=== PATIENT | female | born 1935 | race Caucasian/White ===

== ENCOUNTER 2020-04-08 00:54 | Outpatient (REF) | payer MEDICARE, SELFPAY ==
[2020-04-08 11:05] LABS: INTERNATIONAL NORM RATIO 1.1 (0.9-1.1); Prothrombin Time 12.9 SEC (10.8-13.0)
== END 2020-04-08 00:55 | disposition home or self-care (01) ==
LOC: HO.LHD 00:54
PROVIDERS: Visit Provider Internal Medicine
DX: I48.91 Unspecified atrial fibrillation (principal)
CPT/HCPCS: 36415; 85610

== ENCOUNTER 2020-04-11 06:48 | Outpatient (REF) | payer MEDICARE, SELFPAY ==
[2020-04-11 10:50] LABS: INTERNATIONAL NORM RATIO 1.1 (0.9-1.1); Prothrombin Time 13.6 SEC (10.8-13.0)
== END 2020-04-11 06:49 | disposition home or self-care (01) ==
LOC: HO.LHD 06:48
PROVIDERS: Visit Provider Internal Medicine
DX: I48.91 Unspecified atrial fibrillation (principal)
CPT/HCPCS: 36415; 85610

== ENCOUNTER 2020-04-13 06:37 | Outpatient (REF) | payer MEDICARE, SELFPAY ==
[2020-04-13 11:09] LABS: INTERNATIONAL NORM RATIO 1.4 (0.9-1.1); Prothrombin Time 16.1 SEC (10.8-13.0)
== END 2020-04-13 06:38 | disposition home or self-care (01) ==
LOC: HO.LHD 06:37
PROVIDERS: Visit Provider Internal Medicine
DX: I48.91 Unspecified atrial fibrillation (principal)
CPT/HCPCS: 36415; 85610

== ENCOUNTER 2020-04-14 06:49 | Outpatient (REF) | payer MEDICARE, SELFPAY | END 2020-04-14 06:50 | disposition home or self-care (01) | LOC: HO.LHD 06:49 | PROVIDERS: Visit Provider Internal Medicine | DX: Z13.89 Encounter for screening for other disorder (principal) ==

== ENCOUNTER 2020-04-15 07:43 | Outpatient (REF) | payer MEDICARE, SELFPAY ==
[2020-04-15 10:58] LABS: INTERNATIONAL NORM RATIO 4.2 (0.9-1.1); Prothrombin Time 50.7 SEC (10.8-13.0)
== END 2020-04-15 07:44 | disposition home or self-care (01) ==
LOC: HO.LHD 07:43
PROVIDERS: Visit Provider Internal Medicine
DX: I48.91 Unspecified atrial fibrillation (principal)
CPT/HCPCS: 36415; 85610

== ENCOUNTER 2020-04-18 | Outpatient (REF) | payer MEDICARE, SELFPAY ==
[2020-04-18 11:01] LABS: INTERNATIONAL NORM RATIO 1.9 (0.9-1.1); Prothrombin Time 22.2 SEC (10.8-13.0)
== END 2020-04-18 00:01 | disposition home or self-care (01) ==
LOC: HO.LHD
PROVIDERS: Visit Provider Internal Medicine
DX: I48.91 Unspecified atrial fibrillation (principal); Z79.01 Long term (current) use of anticoagulants
CPT/HCPCS: 36415; 85610

== ENCOUNTER 2020-04-19 07:19 | Outpatient (REF) | payer MEDICARE, SELFPAY ==
[2020-04-19 11:16] LABS: Prothrombin Time 23.6 SEC (10.8-13.0)
== END 2020-04-19 07:20 | disposition home or self-care (01) ==
LOC: HO.LHD 07:19
PROVIDERS: Visit Provider Internal Medicine
DX: I48.0 Paroxysmal atrial fibrillation (principal)
CPT/HCPCS: 36415; 85610

== ENCOUNTER 2020-04-25 07:54 | Outpatient (REF) | payer MEDICARE, SELFPAY ==
[2020-04-25 10:41] LABS: Prothrombin Time 88.5 SEC (10.8-13.0)
[2020-04-25 10:52] LABS: INTERNATIONAL NORM RATIO 7.3 (0.9-1.1)
== END 2020-04-25 07:55 | disposition home or self-care (01) ==
LOC: HO.LHD 07:54
PROVIDERS: Visit Provider Internal Medicine
DX: I48.91 Unspecified atrial fibrillation (principal)
CPT/HCPCS: 36415; 85610

== ENCOUNTER 2020-04-27 | Outpatient (REF) | payer MEDICARE, SELFPAY ==
[2020-04-27 10:59] LABS: INTERNATIONAL NORM RATIO 4.5 (0.9-1.1); Prothrombin Time 54.1 SEC (10.8-13.0)
== END 2020-04-27 00:01 | disposition home or self-care (01) ==
LOC: HO.LHD
PROVIDERS: Visit Provider Internal Medicine
DX: I48.91 Unspecified atrial fibrillation (principal)
CPT/HCPCS: 36415; 85610

== ENCOUNTER 2020-04-29 | Outpatient (REF) | payer MEDICARE, SELFPAY ==
[2020-04-29 11:15] LABS: INTERNATIONAL NORM RATIO 2.4 (0.9-1.1); Prothrombin Time 28.2 SEC (10.8-13.0)
== END 2020-04-29 00:01 | disposition home or self-care (01) ==
LOC: HO.LHD
PROVIDERS: Visit Provider Internal Medicine
DX: I48.91 Unspecified atrial fibrillation (principal); Z79.01 Long term (current) use of anticoagulants
CPT/HCPCS: 36415; 85610

== ENCOUNTER 2020-05-02 | Outpatient (REF) | payer MEDICARE, SELFPAY ==
[2020-05-02 10:56] LABS: Prothrombin Time 35.6 SEC (10.8-13.0)
== END 2020-05-02 00:01 | disposition home or self-care (01) ==
LOC: HO.LHD
PROVIDERS: Visit Provider Internal Medicine
DX: I48.91 Unspecified atrial fibrillation (principal); Z79.01 Long term (current) use of anticoagulants
CPT/HCPCS: 36415; 85610

== ENCOUNTER 2020-05-09 | Outpatient (REF) | payer MEDICARE, SELFPAY ==
[2020-05-09 11:50] LABS: Prothrombin Time 70.2 SEC (10.8-13.0)
[2020-05-09 11:52] LABS: INTERNATIONAL NORM RATIO 5.8 (0.9-1.1)
== END 2020-05-09 00:01 | disposition home or self-care (01) ==
LOC: HO.LHD
PROVIDERS: Visit Provider Internal Medicine
DX: I48.91 Unspecified atrial fibrillation (principal); Z79.01 Long term (current) use of anticoagulants
CPT/HCPCS: 36415; 85610

== ENCOUNTER 2020-05-11 05:08 | Outpatient (REF) | payer MEDICARE, SELFPAY ==
[2020-05-11 11:01] LABS: INTERNATIONAL NORM RATIO 3.1 (0.9-1.1); Prothrombin Time 37.1 SEC (10.8-13.0)
== END 2020-05-11 05:09 | disposition home or self-care (01) ==
LOC: HO.LHD 05:08
PROVIDERS: Visit Provider Internal Medicine
DX: I48.91 Unspecified atrial fibrillation (principal)
CPT/HCPCS: 36415; 85610

== ENCOUNTER 2020-05-13 | Outpatient (REF) | payer MEDICARE, SELFPAY ==
[2020-05-13 11:45] LABS: Prothrombin Time 23.4 SEC (10.8-13.0)
== END 2020-05-13 00:01 | disposition home or self-care (01) ==
LOC: HO.LHD
PROVIDERS: Visit Provider Internal Medicine
DX: I48.91 Unspecified atrial fibrillation (principal); Z79.01 Long term (current) use of anticoagulants
CPT/HCPCS: 36415; 85610

== ENCOUNTER 2020-05-17 05:05 | Outpatient (REF) | payer MEDICARE, SELFPAY ==
[2020-05-17 11:11] LABS: INTERNATIONAL NORM RATIO 2.6 (0.9-1.1); Prothrombin Time 31.6 SEC (10.8-13.0)
== END 2020-05-17 05:06 | disposition home or self-care (01) ==
LOC: HO.LHD 05:05
PROVIDERS: Visit Provider Internal Medicine
DX: I48.91 Unspecified atrial fibrillation (principal)
CPT/HCPCS: 36415; 85610

== ENCOUNTER 2020-05-19 | Outpatient (REF) | payer MEDICARE, SELFPAY ==
[2020-05-19 11:14] LABS: INTERNATIONAL NORM RATIO 3.1 (0.9-1.1); Prothrombin Time 37.6 SEC (10.8-13.0)
== END 2020-05-19 00:01 | disposition home or self-care (01) ==
LOC: HO.LHD
PROVIDERS: Visit Provider Internal Medicine
DX: I48.91 Unspecified atrial fibrillation (principal); Z79.01 Long term (current) use of anticoagulants
CPT/HCPCS: 36415; 85610

== ENCOUNTER 2020-05-24 09:06 | Outpatient (REF) | payer MEDICARE, SELFPAY ==
[2020-05-24 11:07] LABS: INTERNATIONAL NORM RATIO 2.6 (0.9-1.1); Prothrombin Time 31.1 SEC (10.8-13.0)
== END 2020-05-24 09:07 | disposition home or self-care (01) ==
LOC: HO.LHD 09:06
PROVIDERS: Visit Provider Internal Medicine
DX: I48.91 Unspecified atrial fibrillation (principal)
CPT/HCPCS: 36415; 85610

== ENCOUNTER 2020-05-31 04:05 | Outpatient (REF) | payer MEDICARE, SELFPAY ==
[2020-05-31 11:02] LABS: INTERNATIONAL NORM RATIO 4.3 (0.9-1.1); Prothrombin Time 51.5 SEC (10.8-13.0)
== END 2020-05-31 04:06 | disposition home or self-care (01) ==
LOC: HO.LHD 04:05
PROVIDERS: Visit Provider Internal Medicine
DX: I48.91 Unspecified atrial fibrillation (principal)
CPT/HCPCS: 36415; 85610

== ENCOUNTER 2020-06-01 12:08 | Outpatient (REF) | payer MEDICARE, SELFPAY ==
[2020-06-01 13:34] LABS: INTERNATIONAL NORM RATIO 2.8 (0.9-1.1); Prothrombin Time 33.6 SEC (10.8-13.0)
== END 2020-06-01 12:09 | disposition home or self-care (01) ==
LOC: HO.LHD 12:08
PROVIDERS: Visit Provider Internal Medicine
DX: I48.91 Unspecified atrial fibrillation (principal)
CPT/HCPCS: 36415; 85610

== ENCOUNTER 2020-06-08 07:47 | Outpatient (REF) | payer MEDICARE, SELFPAY ==
[2020-06-08 11:39] LABS: INTERNATIONAL NORM RATIO 3.2 (0.9-1.1); Prothrombin Time 38.9 SEC (10.8-13.0)
== END 2020-06-08 07:48 | disposition home or self-care (01) ==
LOC: HO.LHD 07:47
PROVIDERS: Visit Provider Internal Medicine
DX: I48.91 Unspecified atrial fibrillation (principal); Z79.01 Long term (current) use of anticoagulants
CPT/HCPCS: 36415; 85610

== ENCOUNTER 2020-06-15 | Outpatient (REF) | payer MEDICARE, SELFPAY ==
[2020-06-15 10:59] LABS: INTERNATIONAL NORM RATIO 1.8 (0.9-1.1); Prothrombin Time 21.3 SEC (10.8-13.0)
== END 2020-06-15 00:01 ==
LOC: HO.LHD
PROVIDERS: Visit Provider Internal Medicine
DX: I48.91 Unspecified atrial fibrillation (principal); Z79.01 Long term (current) use of anticoagulants
CPT/HCPCS: 36415; 85610

== ENCOUNTER 2020-06-20 | Outpatient (REF) | payer MEDICARE, SELFPAY ==
[2020-06-20 11:21] LABS: INTERNATIONAL NORM RATIO 1.3 (0.9-1.1)
== END 2020-06-20 00:01 ==
LOC: HO.LHD
PROVIDERS: Visit Provider Internal Medicine
DX: I48.91 Unspecified atrial fibrillation (principal); Z79.01 Long term (current) use of anticoagulants; Z51.81 Encounter for therapeutic drug level monitoring
CPT/HCPCS: 36415; 85610

== ENCOUNTER 2020-06-23 | Outpatient (REF) | payer MEDICARE, SELFPAY ==
[2020-06-23 11:32] LABS: INTERNATIONAL NORM RATIO 1.3 (0.9-1.1); Prothrombin Time 15.4 SEC (10.8-13.0)
== END 2020-06-23 00:01 | disposition home or self-care (01) ==
LOC: HO.LHD
PROVIDERS: Visit Provider Internal Medicine
DX: I48.91 Unspecified atrial fibrillation (principal); Z79.01 Long term (current) use of anticoagulants
CPT/HCPCS: 36415; 85610

== ENCOUNTER 2020-06-24 08:13 | Outpatient (REF) | payer MEDICARE, SELFPAY ==
[2020-06-24 10:47] LABS: INTERNATIONAL NORM RATIO 1.4 (0.9-1.1); Prothrombin Time 17.1 SEC (10.8-13.0)
== END 2020-06-24 08:14 | disposition home or self-care (01) ==
LOC: HO.LHD 08:13
PROVIDERS: Visit Provider Internal Medicine
DX: I48.91 Unspecified atrial fibrillation (principal)
CPT/HCPCS: 36415; 85610

== ENCOUNTER 2020-06-27 07:49 | Outpatient (REF) | payer MEDICARE, SELFPAY ==
[2020-06-27 11:04] LABS: INTERNATIONAL NORM RATIO 1.5 (0.9-1.1); Prothrombin Time 18.3 SEC (10.8-13.0)
== END 2020-06-27 07:50 | disposition home or self-care (01) ==
LOC: HO.LHD 07:49
PROVIDERS: Visit Provider Internal Medicine
DX: I48.91 Unspecified atrial fibrillation (principal)
CPT/HCPCS: 36415; 85610

== ENCOUNTER 2020-07-04 | Outpatient (REF) | payer MEDICARE, SELFPAY ==
[2020-07-04 11:20] LABS: INTERNATIONAL NORM RATIO 1.6 (0.9-1.1); Prothrombin Time 18.8 SEC (10.8-13.0)
== END 2020-07-04 00:01 | disposition home or self-care (01) ==
LOC: HO.LHD
PROVIDERS: Visit Provider Internal Medicine
DX: I48.91 Unspecified atrial fibrillation (principal)
CPT/HCPCS: 36415; 85610

== ENCOUNTER 2020-07-11 13:26 | Outpatient (REF) | payer MEDICARE, SELFPAY ==
[2020-07-11 11:03] LABS: INTERNATIONAL NORM RATIO 2.3 (0.9-1.1); Prothrombin Time 27.3 SEC (10.8-13.0)
== END 2020-07-11 13:27 | disposition home or self-care (01) ==
LOC: HO.LHD 13:26
PROVIDERS: Visit Provider Internal Medicine
DX: I48.91 Unspecified atrial fibrillation (principal)
CPT/HCPCS: 36415; 85610

== ENCOUNTER 2020-07-26 00:55 | Outpatient (REF) | payer MEDICARE, SELFPAY ==
[2020-07-26 10:57] LABS: INTERNATIONAL NORM RATIO 3.2 (0.9-1.1); Prothrombin Time 38.1 SEC (10.8-13.0)
== END 2020-07-26 00:56 | disposition home or self-care (01) ==
LOC: HO.LHD 00:55
PROVIDERS: Visit Provider Internal Medicine
DX: I48.91 Unspecified atrial fibrillation (principal)
CPT/HCPCS: 36415; 85610

== ENCOUNTER 2020-08-09 05:55 | Outpatient (REF) | payer MEDICARE, SELFPAY ==
[2020-08-09 11:21] LABS: INTERNATIONAL NORM RATIO 1.5 (0.9-1.1); Prothrombin Time 18.3 SEC (10.8-13.0)
== END 2020-08-09 05:56 | disposition home or self-care (01) ==
LOC: HO.LHD 05:55
PROVIDERS: Visit Provider Internal Medicine
DX: I48.91 Unspecified atrial fibrillation (principal)
CPT/HCPCS: 36415; 85610

== ENCOUNTER 2020-08-16 00:43 | Outpatient (REF) | payer MEDICARE, SELFPAY ==
[2020-08-16 11:16] LABS: INTERNATIONAL NORM RATIO 1.4 (0.9-1.1); Prothrombin Time 16.7 SEC (10.8-13.0)
== END 2020-08-16 00:44 | disposition home or self-care (01) ==
LOC: HO.LHD 00:43
PROVIDERS: Visit Provider Internal Medicine
DX: I48.91 Unspecified atrial fibrillation (principal)
CPT/HCPCS: 36415; 85610

== ENCOUNTER 2020-08-23 06:51 | Outpatient (REF) | payer MEDICARE, SELFPAY | END 2020-08-23 06:52 | disposition home or self-care (01) | LOC: HO.LHD 06:51 | PROVIDERS: Visit Provider Internal Medicine | DX: Z13.89 Encounter for screening for other disorder (principal) ==

== ENCOUNTER 2020-11-28 14:45 | Outpatient (REF) | payer MEDICARE, SELFPAY ==
[2020-11-28 14:53] LABS: Glucose Urine UA NEG (NEG); Leukocyte Esterase Urine 2+ (NEG); Nitrite Urine NEG (NEG); Specific Gravity - Urine 1.015 (1.005-1.025); Urine Blood 1+ (NEG); Urine Ketones NEG (NEG); Urine Protein NEG (NEG-TRACE)
[2020-11-28 14:57] LABS: Appearance Urine CLOUDY; Color Urine YELLOW
[2020-11-28 15:00] LABS: Bacteria Urine 2+ /LPF; Calcium Oxalate Crystals Urine 1+ /LPF; Squamous Epithelial Cell Urine TRACE /LPF; Urine Talc Crystals 1+ /LPF; WBC Urine 50-75 /HPF (0-4)
== END 2020-11-28 14:46 | disposition home or self-care (01) ==
LOC: HO.LNP 14:45
PROVIDERS: Visit Provider Internal Medicine
DX: R30.0 Dysuria (principal)
CPT/HCPCS: 81001; 87086; 87088; 87186

== ENCOUNTER 2020-12-13 13:07 | Outpatient (REF) | payer MEDICARE, SELFPAY ==
[2020-12-13 13:58] LABS: Glucose Urine UA NEG (NEG); Leukocyte Esterase Urine NEG (NEG); Nitrite Urine NEG (NEG); PH 5.5 (5.0-8.0); Urine Blood TRACE (NEG); Urine Ketones NEG (NEG); Urine Protein NEG (NEG-TRACE)
[2020-12-13 13:59] LABS: Appearance Urine CLEAR; Color Urine YELLOW
[2020-12-13 14:11] LABS: RBC Urine 0-2 /HPF (0); Squamous Epithelial Cell Urine TRACE /LPF; WBC Urine 0-2 /HPF (0-4)
== END 2020-12-13 13:08 | disposition home or self-care (01) ==
LOC: HO.HMGCLDS 13:07
PROVIDERS: Visit Provider Internal Medicine
DX: R30.0 Dysuria (principal)
CPT/HCPCS: 81001; 87086

== ENCOUNTER 2021-08-24 12:02 | Outpatient (REF) | payer MEDICARE, SELFPAY ==
[2021-08-24 11:16] LABS: MANUAL DIFF FLAG NO
[2021-08-24 11:23] LABS: Basophils Percent Auto 0.3 % (0-2); Eosinophils Absolute Auto 0.1 X10*3/uL (0.0-0.4); Eosinophils Percent Auto 1.5 % (0-4); Hematocrit 38.3 % (37.0-47.0); Hemoglobin 11.2 g/dl (12.0-16.0); Imm Gran Abs Auto 0.05 X10*3/uL (0.00-0.03); Imm Gran Pct Auto 0.6 % (0.0-0.4); Lymphocytes Absolute Auto 1.9 X10*3/uL (1.2-4.9); Lymphocytes Percent Auto 21.6 % (20-40); Mean Corpuscular HGB Conc 29.2 g/dl (31.0-35.0); Mean Corpuscular Hemoglobin 24.6 pg (27.0-33.0); Mean Corpuscular Volume 84.2 fL (80.0-98.0); Mean Platelet Volume 9.6 fL (9.4-12.3); Monocytes Absolute Auto 0.7 X10*3/uL (0.1-1.2); Monocytes Percent Auto 7.3 % (2-11); Neutrophils Absolute Auto 6.1 x10*3/uL (2.0-8.3); Neutrophils Percent Auto 68.7 % (45-73); Platelet Count 232 X10*3/uL (160-400); Red Blood Count 4.55 X10*6/uL (4.20-5.50); Red Cell Distribution Width 16.2 % (11.0-16.0); White Blood Count 8.9 X10*3/uL (4.8-10.8)
[2021-08-24 12:04] LABS: Digoxin 1.2 ng/mL (0.8-2.0)
[2021-08-24 12:08] LABS: Alanine Aminotransferase 16 U/L (0-31); Albumin Level 3.7 g/dL (3.5-5.0); Alkaline Phosphatase 82 U/L (39-117); Anion Gap 13 (12-20); Aspartate Amino Transferase 16 U/L (5-31); Bilirubin Total 0.5 mg/dL (0.0-1.0); Blood Urea Nitrogen 29 mg/dL (9-16); Calcium 8.9 mg/dL (8.4-10.2); Carbon Dioxide 30 mmol/L (22-29); Chloride 104 mmol/L (96-108); Cholesterol 83 mg/dL; Estimated Glomerular Filt Rate 44; Glucose Random 191 mg/dL (60-115); Potassium 4.3 mmol/L (3.3-5.1); Sodium 143 mmol/L (135-145); Total Protein 6.5 g/dL (6.5-8.0); Triglycerides 207 mg/dL
[2021-08-25 11:43] LABS: HDL Cholesterol 35 mg/dL
[2021-08-25 11:44] LABS: LDL Cholesterol Calculated 7 mg/dl
[2021-08-25 14:09] LABS: Estimated Average Glucose 137 mg/dL; Hemoglobin A1c % 6.4 %
== END 2021-08-24 12:03 | disposition home or self-care (01) ==
LOC: HO.LHD 12:02
PROVIDERS: Visit Provider Internal Medicine
DX: E11.9 Type 2 diabetes mellitus without complications (principal); R53.83 Other fatigue; I48.91 Unspecified atrial fibrillation; E78.00 Pure hypercholesterolemia, unspecified; Z79.899 Other long term (current) drug therapy
CPT/HCPCS: 36415; 80053; 80061; 80162; 83036; 85025

== ENCOUNTER 2022-01-11 06:04 | Outpatient (REF) | payer MEDICARE, SELFPAY ==
[2022-01-11 12:10] LABS: Anion Gap 16 (12-20); Blood Urea Nitrogen 26 mg/dL (9-16); Calcium 8.4 mg/dL (8.4-10.2); Carbon Dioxide 29 mmol/L (22-29); Chloride 102 mmol/L (96-108); Estimated Glomerular Filt Rate 43; Glucose Random 139 mg/dL (60-115); Potassium 3.7 mmol/L (3.3-5.1); Sodium 143 mmol/L (135-145)
[2022-01-15 15:03] LABS: Gliadin Deamidated IgA Ab <1.0 U/mL; Gliadin Deamidated IgG Ab <1.0 U/mL
[2022-01-16 08:06] LABS: Transglutaminase Ab IgG 1.5 U/mL
== END 2022-01-11 06:05 | disposition home or self-care (01) ==
LOC: HO.LHD 06:04
PROVIDERS: Visit Provider Internal Medicine
DX: R53.83 Other fatigue (principal); R19.7 Diarrhea, unspecified
CPT/HCPCS: 36415; 80048; 86258; 86364

== ENCOUNTER 2022-02-13 06:13 | Outpatient (REF) | payer MEDICARE, SELFPAY ==
[2022-02-13 16:54] LABS: Estimated Average Glucose 123 mg/dL; Hemoglobin A1c % 5.9 %
== END 2022-02-13 06:14 | disposition home or self-care (01) ==
LOC: HO.LHD 06:13
PROVIDERS: Visit Provider Internal Medicine
DX: E11.9 Type 2 diabetes mellitus without complications (principal); Z79.4 Long term (current) use of insulin
CPT/HCPCS: 36415; 83036

== ENCOUNTER 2022-10-22 13:50 | Outpatient (REF) | payer MEDICARE, SELFPAY ==
--- NOTE | ~2022-10-22 | US_ITS ---
EXAMINATION: NONINVASIVE ASSESSMENT OF THE ARTERIES OF BOTH LOWER EXTREMITIES INCLUDING BILATERAL LOWER EXTREMITY DUPLEX. CLINICAL INFORMATION: Rule out blockage COMPARISON: Noninvasive arterial exam on 04/03/2019 TECHNIQUE: duplex Doppler techniques with wave form analysis and measurement of velocities in the common femoral, profunda femoral, superficial femoral, popliteal, tibial and peroneal arteries. The study was performed only at rest. FINDINGS: RIGHT LEG Common femoral artery: 114 cm/s, Multiphasic Profunda femoris artery: 77 cm/s, Multiphasic Superficial femoral artery (proximal): 84 cm/s, Multiphasic Superficial femoral artery (mid): 53 cm/s, Multiphasic Superficial femoral artery (distal): 50 cm/s, Multiphasic Proximal Popliteal artery: 23 cm/s, Multiphasic Mid posterior tibial artery: 94 cm/s, Multiphasic LEFT LEG: Common femoral artery: 84 cm/s, Multiphasic Profunda femoris artery: 48 cm/s, Multiphasic Superficial femoral artery (proximal): 62 cm/s, Multiphasic Superficial femoral artery (mid): 50 cm/s, Multiphasic Superficial femoral artery (distal): 34 cm/s, Multiphasic Proximal Popliteal artery: 31 cm/s, Multiphasic Mid posterior tibial artery: 89 cm/s, Multiphasic Incidental note of a complex fluid collection in left popliteal fossa measuring 3.1 x 0.7 x 2.8 cm. US/US arterial duplex LE BI IMPRESSION: No hemodynamically significant stenosis in the bilateral lower extremities.
== END 2022-10-22 13:51 | disposition home or self-care (01) ==
LOC: HO.US 13:50
PROVIDERS: PCP Internal Medicine; Visit Provider Internal Medicine
DX: R09.89 Other specified symptoms and signs involving the circulatory and respiratory systems (principal)
CPT/HCPCS: 93925